=== PATIENT | male | born 1955 | race Hispanic/Latino ===

== ENCOUNTER 2017-11-20 05:28 | Inpatient (IN) | payer OTHER ==
[2017-11-20] VITALS (18 sets, daily range): BP systolic 118–152; BP diastolic 66–99
[~2017-11-20] VITALS: Ht 177.8 cm; Wt 101.3 kg
[~2017-11-20 05:28] MED LIST: ACET1TAB12 PO
[2017-11-20] MEDS ORDERED: ASPIRIN 325 MG TABLET ONE (05:33)
[2017-11-20] MEDS ORDERED: NITROGLYCERIN 0.4 MG SL TAB SL ONE ×2 (05:41→06:18)
[2017-11-20 05:47] LABS: BASOPHILS % (AUTO) 1.1 % (0.0-5.0); EOSINOPHILS % (AUTO) 3.7 % (0.0-8.0); HEMATOCRIT 44.9 % (42-54); LYMPHOCYTES % (AUTO) 27.2 % (21.0-51.0); MEAN CORPUSCULAR HEMOGLOBIN 30.5 pg (27.0-33.0); MEAN CORPUSCULAR HGB CONC 36.2 g/dL (32.0-36.0); MEAN CORPUSCULAR VOLUME 84.2 fL (79-99); MONOCYTES % (AUTO) 7.4 % (3.0-13.0); NEUTROPHILS % (AUTO) 60.6 % (40.0-77.0); NUCLEATED RED BLOOD CELLS 0.1 % (0.0-0.19); PLATELET COUNT (AUTO) 221 K/uL (130-400); RED BLOOD CELL COUNT(AUTO) 5.33 MIL/uL (4.50-6.20); WHITE BLOOD COUNT (AUTO) 8.9 K/uL (4.8-10.8)
[2017-11-20] MEDS ORDERED: METOPROLOL TARTRATE 1 MG/ML 5ML VIAL IV ONE ×2 (05:47→06:17)
[2017-11-20] MEDS ORDERED: CLOPIDOGREL BISULFATE 300 MG TAB ONE ×2 (05:47→06:13)
[2017-11-20 05:53] LABS: INR 0.93 (0.85-1.15); PROTHROMBIN TIME 9.8 SEC (9.6-11.6)
[2017-11-20 05:54] LABS: POTASSIUM 3.6 mmol/L (3.5-5.1)
[2017-11-20 06:05] LABS: ALBUMIN 3.5 g/dL (3.5-5.0); BILIRUBIN,TOTAL 0.5 mg/dL (0.2-1.0); TOTAL PROTEIN, SERUM 6.7 g/dL (6.0-8.3)
[2017-11-20 06:07] LABS: CREATINE KINASE MB 1.2 ng/mL (0.5-3.6)
[2017-11-20] MEDS ORDERED: BIVALIRUDIN 250 MG/VIAL IV ONE (06:13)
[2017-11-20] MEDS ORDERED: ISOVUE-370 50ML VIAL IV ONE (06:13)
[2017-11-20] MEDS ORDERED: NITROGLYCERIN 5 MG/ML 10 ML VIAL IV ONE (06:13)
[2017-11-20] MEDS ORDERED: IOPAMIDOL-370 100 ML VIAL IV ONE ×2 (06:13→07:13)
[2017-11-20] MEDS ORDERED: LIDOCAINE HCL-MPF 2% 5ML VIAL ONE (06:14)
[2017-11-20] MEDS ORDERED: EPTIFIBATIDE 75MG/100ML BOTTLE 100 ML IV ONE (07:05)
[2017-11-20] MEDS ORDERED: EPTIFIBATIDE 2 MG/ML 10 ML VIAL IVP ONE (07:05)
[2017-11-20] MEDS ORDERED: MIDAZOLAM HCL 1 MG/ML 2ML VIAL ONE (07:17)
[2017-11-20] MEDS ORDERED: MORPHINE SULFATE 4 MG/1ML SYG ONE ×2 (07:30→08:30)
[2017-11-20] MEDS ORDERED: ACETAMINOPHEN 325 MG TAB PO PRN (08:30)
[2017-11-20] MEDS ORDERED: EPTIFIBATIDE 75MG/100ML BOTTLE 100 ML IV SCH (08:30)
[2017-11-20 08:53] LABS: CHOLESTEROL 195 mg/dL (<200); HDL CHOLESTEROL 37 mg/dL (29-71); LDL DIRECT 155 mg/dL (0-99); TRIGLYCERIDES 165 mg/dL (30-200)
[2017-11-20] MEDS ORDERED: LISINOPRIL 5 MG TABLET PO SCH (09:00)
[2017-11-20] MEDS ORDERED: CARVEDILOL 6.25 MG TABLET PO SCH (09:00)
[2017-11-20] MEDS: CARVEDILOL 12.5 MG TABLET PO SCH ×2 (10:55→20:13)
[2017-11-20] MEDS: NITROGLYCERIN 50 MG/D5% WATER 1 BOT IV PRN (12:20)
[2017-11-20] MEDS ORDERED: INSULIN HUMULIN R 100 UNIT/ML 3ML SQ SCH (16:30)
[2017-11-20] MEDS ORDERED: LISINOPRIL 10 MG TABLET ONE (18:01)
[2017-11-20 18:49] LABS: CREATINE KINASE MB 44.4 ng/mL (0.5-3.6)
[2017-11-20 19:08] LABS: TROPONIN I 4.13 ng/mL (0.00-0.06)
[2017-11-20] MEDS: ATORVASTATIN CALCIUM 40 MG TABLET PO SCH (20:13)
[2017-11-20] MEDS: INSULIN HUMULIN R 100 UNIT/ML 3ML SQ SCH (20:19)
[2017-11-20] MEDS: ONDANSETRON HCL MDV 20ML 2 MG/ML VIAL IVP PRN (20:51)
[2017-11-20] MEDS ORDERED: INSULIN GLARGINE 100 UNITS/ML 10 ML VIAL SQ SCH (21:00)
[2017-11-21] VITALS (26 sets, daily range): BP systolic 112–163; BP diastolic 47–106
[2017-11-21 00:34] LABS: CREATINE KINASE MB 75.2 ng/mL (0.5-3.6)
[2017-11-21 00:40] LABS: TROPONIN I 9.79 ng/mL (0.00-0.06)
[2017-11-21] MEDS: NITROGLYCERIN 50 MG/D5% WATER 1 BOT IV PRN (04:51)
[2017-11-21] MEDS: ONDANSETRON HCL MDV 20ML 2 MG/ML VIAL IVP PRN (06:35)
[2017-11-21] MEDS: INSULIN HUMULIN R 100 UNIT/ML 3ML SQ SCH ×4 (06:39→20:28)
[2017-11-21 06:44] LABS: MEAN CORPUSCULAR HEMOGLOBIN 30.2 pg (27.0-33.0); MEAN CORPUSCULAR HGB CONC 35.5 g/dL (32.0-36.0); PLATELET COUNT (AUTO) 30 K/uL (130-400); RED BLOOD CELL COUNT(AUTO) 4.82 MIL/uL (4.50-6.20); RED CELL DISTRIBUTION WIDTH 14.1 % (11.0-15.5); WHITE BLOOD COUNT (AUTO) 12.8 K/uL (4.8-10.8)
[2017-11-21 07:00] LABS: HEMOGLOBIN A1C 10.6 % (4.0-6.0)
[2017-11-21 07:05] LABS: CREATINE KINASE MB 100.6 ng/mL (0.5-3.6)
[2017-11-21 07:07] LABS: TROPONIN I 23.68 ng/mL (0.00-0.06)
[2017-11-21 07:13] LABS: CREATININE 1.2 mg/dL (0.5-1.5); POTASSIUM 3.5 mmol/L (3.5-5.1)
[2017-11-21] MEDS: CLOPIDOGREL BISULFATE 75 MG TAB PO SCH (08:30)
[2017-11-21] MEDS: CARVEDILOL 12.5 MG TABLET PO SCH ×2 (08:31→20:22)
[2017-11-21] MEDS: ASPIRIN 81MG TAB.CHEW PO SCH (08:31)
[2017-11-21] MEDS: LISINOPRIL 10 MG TABLET PO SCH (08:31)
[2017-11-21] MEDS ORDERED: HYDROCHLOROTHIAZIDE 25 MG TABLET PO SCH (15:00)
[2017-11-21] MEDS ORDERED: CLONIDINE HCL 0.1 MG TABLET PO PRN (15:00)
[2017-11-21] MEDS ORDERED: FUROSEMIDE 10 MG/ML 2ML VIAL ONE (16:13)
[2017-11-21] MEDS ORDERED: FURO20TA6 PO (16:14)
[2017-11-21] MEDS ORDERED: CLOP75TA14 PO (16:14)
[2017-11-21] MEDS ORDERED: SPIRONOLACTONE 25 MG TAB ONE (16:14)
[2017-11-21] MEDS ORDERED: CARV12.580 PO (16:14)
[2017-11-21] MEDS ORDERED: SPIR25TA PO (16:14)
[2017-11-21] MEDS ORDERED: LISI10TA7 PO (16:14)
[2017-11-21] MEDS ORDERED: ASPI-1005 PO (16:14)
[2017-11-21] MEDS ORDERED: ATOR40TA69 PO (16:14)
[2017-11-21] MEDS ORDERED: FUROSEMIDE 10 MG/ML 2ML VIAL IV SCH (16:15)
[2017-11-21] MEDS ORDERED: SPIRONOLACTONE 25 MG TAB PO SCH (16:15)
[2017-11-21 16:22] LABS: HEMATOCRIT 40.7 % (42-54); MEAN CORPUSCULAR HEMOGLOBIN 29.9 pg (27.0-33.0); MEAN CORPUSCULAR HGB CONC 34.9 g/dL (32.0-36.0); MEAN CORPUSCULAR VOLUME 85.7 fL (79-99); PLATELET COUNT (AUTO) 37 K/uL (130-400); RED BLOOD CELL COUNT(AUTO) 4.75 MIL/uL (4.50-6.20); RED CELL DISTRIBUTION WIDTH 14.3 % (11.0-15.5); WHITE BLOOD COUNT (AUTO) 13.4 K/uL (4.8-10.8)
[2017-11-21] MEDS: ATORVASTATIN CALCIUM 40 MG TABLET PO SCH (20:22)
[2017-11-21] MEDS: INSULIN GLARGINE 100 UNITS/ML 10 ML VIAL SQ SCH (20:26)
[2017-11-22 04:00] VITALS: BP 123/84
[2017-11-22 04:19] LABS: BASOPHILS % (AUTO) 0.7 % (0.0-5.0); EOSINOPHILS % (AUTO) 1.4 % (0.0-8.0); HEMATOCRIT 42.2 % (42-54); LYMPHOCYTES % (AUTO) 20.1 % (21.0-51.0); MEAN CORPUSCULAR HEMOGLOBIN 30.1 pg (27.0-33.0); MEAN CORPUSCULAR HGB CONC 35.2 g/dL (32.0-36.0); MEAN CORPUSCULAR VOLUME 85.5 fL (79-99); MONOCYTES % (AUTO) 11.7 % (3.0-13.0); NEUTROPHILS % (AUTO) 66.1 % (40.0-77.0); NUCLEATED RED BLOOD CELLS 0.1 % (0.0-0.19); PLATELET COUNT (AUTO) 47 K/uL (130-400); RED BLOOD CELL COUNT(AUTO) 4.93 MIL/uL (4.50-6.20); RED CELL DISTRIBUTION WIDTH 14.1 % (11.0-15.5); WHITE BLOOD COUNT (AUTO) 13.5 K/uL (4.8-10.8)
[2017-11-22 04:33] LABS: CREATININE 1.1 mg/dL (0.5-1.5); MAGNESIUM 1.6 mg/dL (1.80-2.40); POTASSIUM 3.4 mmol/L (3.5-5.1)
[2017-11-22] MEDS: INSULIN HUMULIN R 100 UNIT/ML 3ML SQ SCH ×4 (07:30→21:17)
[2017-11-22 07:52] VITALS: BP 125/81
[2017-11-22] MEDS: LISINOPRIL 10 MG TABLET PO SCH (08:57)
[2017-11-22] MEDS: CLOPIDOGREL BISULFATE 75 MG TAB PO SCH (08:57)
[2017-11-22] MEDS: CARVEDILOL 12.5 MG TABLET PO SCH ×2 (08:58→21:21)
[2017-11-22] MEDS: ASPIRIN 81MG TAB.CHEW PO SCH (08:58)
[2017-11-22] MEDS ORDERED: SPIRONOLACTONE 25 MG TAB PO SCH (09:00)
[2017-11-22] MEDS ORDERED: FUROSEMIDE 20 MG TABLET PO SCH (09:00)
[2017-11-22 11:16] VITALS: BP 126/81
[2017-11-22] MEDS: MAGNESIUM 2GM PREMIX 50ML 50 ML IV SCH (11:28)
[2017-11-22 15:59] VITALS: BP 119/43
[2017-11-22 19:56] VITALS: BP 142/82
[2017-11-22] MEDS: INSULIN GLARGINE 100 UNITS/ML 10 ML VIAL SQ SCH (21:16)
[2017-11-22] MEDS: ATORVASTATIN CALCIUM 40 MG TABLET PO SCH (21:20)
[2017-11-22 23:42] VITALS: BP 130/67
[2017-11-23 03:47] LABS: HEMATOCRIT 39.7 % (42-54); MEAN CORPUSCULAR HEMOGLOBIN 30.8 pg (27.0-33.0); MEAN CORPUSCULAR HGB CONC 36.3 g/dL (32.0-36.0); MEAN CORPUSCULAR VOLUME 84.7 fL (79-99); PLATELET COUNT (AUTO) 63 K/uL (130-400); RED BLOOD CELL COUNT(AUTO) 4.69 MIL/uL (4.50-6.20); RED CELL DISTRIBUTION WIDTH 14.1 % (11.0-15.5); WHITE BLOOD COUNT (AUTO) 11.1 K/uL (4.8-10.8)
[2017-11-23 04:03] LABS: CREATININE 1.1 mg/dL (0.5-1.5); MAGNESIUM 1.8 mg/dL (1.80-2.40); POTASSIUM 3.3 mmol/L (3.5-5.1)
[2017-11-23 04:26] VITALS: BP 125/84
[2017-11-23 04:32] LABS: BAND NEUTROPHILS % (MANUAL) 2 % (0-2); BASOPHILS % (MANUAL) 1 % (0-2); EOSINOPHILS % (MANUAL) 2 % (1-6); LYMPHOCYTES % (MANUAL) 10 % (22-44); MAN.DIFF COMMENT-IMPRESSION MANUAL DIFFERENTIAL; MONOCYTES % (MANUAL) 4 % (2-9); REACTIVE LYMPHOCYTES 6 % (0-0); SEGMENTED NEUTROPHILS % 75 % (40-70)
[2017-11-23] MEDS: MAGNESIUM 2GM PREMIX 50ML 50 ML IV SCH (04:35)
[2017-11-23] MEDS ORDERED: POTASSIUM CHLORIDE 20MEQ/100ML 100 ML IV PRN (04:45)
[2017-11-23] MEDS ORDERED: POTASSIUM CHLORIDE 10% ELIXIR 20 MEQ/15 ML UDCUP PO PRN (04:45)
[2017-11-23] MEDS ORDERED: LIDOCAINE HCL-MPF 1% 2ML VIAL IVP PRN (04:45)
[2017-11-23] MEDS ORDERED: POTASSIUM CHLORIDE 10 MEQ/TAB.SA PO ONE ×4 (04:48→06:36)
[2017-11-23] MEDS: INSULIN HUMULIN R 100 UNIT/ML 3ML SQ SCH ×4 (06:38→21:31)
[2017-11-23 07:12] VITALS: BP 137/93
[2017-11-23] MEDS: SPIRONOLACTONE 25 MG TAB PO SCH (10:31)
[2017-11-23] MEDS: CARVEDILOL 12.5 MG TABLET PO SCH ×2 (10:31→21:34)
[2017-11-23] MEDS: ASPIRIN 81MG TAB.CHEW PO SCH (10:31)
[2017-11-23] MEDS: LISINOPRIL 10 MG TABLET PO SCH (10:31)
[2017-11-23] MEDS: CLOPIDOGREL BISULFATE 75 MG TAB PO SCH (10:31)
[2017-11-23] MEDS: POTASSIUM CHLORIDE 20 MEQ ERTAB PO PRN ×2 (10:32→13:19)
[2017-11-23 11:30] VITALS: BP 136/95
[2017-11-23 16:11] VITALS: BP 143/94
[2017-11-23 19:44] VITALS: BP 140/92
[2017-11-23] MEDS ORDERED: INSULIN GLARGINE 100 UNITS/ML 10 ML VIAL SQ SCH (21:00)
[2017-11-23] MEDS: ATORVASTATIN CALCIUM 40 MG TABLET PO SCH (21:34)
[2017-11-23 23:57] VITALS: BP 149/92
[2017-11-24 04:22] VITALS: BP 133/95
[2017-11-24 04:41] LABS: POTASSIUM 3.6 mmol/L (3.5-5.1)
[2017-11-24] MEDS ORDERED: POTASSIUM CHLORIDE 10 MEQ/TAB.SA PO ONE ×4 (04:54→06:19)
[2017-11-24] MEDS: INSULIN HUMULIN R 100 UNIT/ML 3ML SQ SCH ×3 (06:41→16:46)
[2017-11-24 07:49] VITALS: BP 142/95
[2017-11-24] MEDS: SPIRONOLACTONE 25 MG TAB PO SCH (09:45)
[2017-11-24] MEDS: CLOPIDOGREL BISULFATE 75 MG TAB PO SCH (09:45)
[2017-11-24] MEDS: LISINOPRIL 10 MG TABLET PO SCH (09:46)
[2017-11-24] MEDS: ASPIRIN 81MG TAB.CHEW PO SCH (09:46)
[2017-11-24] MEDS: CARVEDILOL 12.5 MG TABLET PO SCH (09:46)
[2017-11-24 11:42] VITALS: BP 136/85
[2017-11-24] MEDS ORDERED: SPIR25TA PO (15:47)
[2017-11-24 16:40] VITALS: BP 139/86
== END 2017-11-24 17:50 | disposition home or self-care (01) | DRG 246 ==
LOC: EDH 05:28 → EDHIP 05:29 → 2BH 08:04 → 2DH 11-22 14:29
PROVIDERS: ADMIT Internal Medicine Nephrology; ATTEND Internal Medicine Nephrology
PROC: 027236Z Dilation of Coronary Artery, Three Arteries with Three Drug-eluting Intraluminal Devices, Percutaneous Approach (ICD-10-PCS; principal; 2017-11-20)
PROC: 4A023N7 Measurement of Cardiac Sampling and Pressure, Left Heart, Percutaneous Approach (ICD-10-PCS; 2017-11-20)
PROC: B2111ZZ Fluoroscopy of Multiple Coronary Arteries using Low Osmolar Contrast (ICD-10-PCS; 2017-11-20)
PROC: B2151ZZ Fluoroscopy of Left Heart using Low Osmolar Contrast (ICD-10-PCS; 2017-11-20)
PROC: B41F1ZZ Fluoroscopy of Right Lower Extremity Arteries using Low Osmolar Contrast (ICD-10-PCS; 2017-11-20)
DX: I21.19 ST elevation (STEMI) myocardial infarction involving other coronary artery of inferior wall (principal); I50.21 Acute systolic (congestive) heart failure; I16.1 Hypertensive emergency; E11.65 Type 2 diabetes mellitus with hyperglycemia; I11.0 Hypertensive heart disease with heart failure; E66.9 Obesity, unspecified; E78.5 Hyperlipidemia, unspecified; E87.6 Hypokalemia; I25.10 Atherosclerotic heart disease of native coronary artery without angina pectoris; I25.5 Ischemic cardiomyopathy; I34.0 Nonrheumatic mitral (valve) insufficiency; Z90.49 Acquired absence of other specified parts of digestive tract
CPT/HCPCS: 36415; 71045; 80048; 80053; 80061; 82550; 82553; 82948; 83036; 83735; 83874; 83880; 84484; 85025; 85027; 85610; 85730; 93005; 93458; 99152; 99153; 99291; C1725; C1760; C1769; C1887; C1894; C9600; C9601; J0583; J1327; J1644; J1815; J1940; J2250; J2270; J3475; J3490; Q9967

== ENCOUNTER 2017-11-27 21:09 | Inpatient (IN) | payer OTHER ==
[~2017-11-27] VITALS: Ht 177.8 cm; Wt 106.4 kg
[~2017-11-27 21:09] MED LIST changes: -ACET1TAB12 PO; +ASPI-1005 PO; +ATOR40TA69 PO; +CARV12.580 PO; +CLOP75TA14 PO; +FURO20TA6 PO; +LISI10TA7 PO; +SPIR25TA PO
[2017-11-27 21:52] LABS: BASOPHILS % (AUTO) 1.1 % (0.0-5.0); EOSINOPHILS % (AUTO) 2.7 % (0.0-8.0); HEMATOCRIT 38.8 % (42-54); LYMPHOCYTES % (AUTO) 19.7 % (21.0-51.0); MEAN CORPUSCULAR HEMOGLOBIN 31.1 pg (27.0-33.0); MEAN CORPUSCULAR HGB CONC 36.5 g/dL (32.0-36.0); MEAN CORPUSCULAR VOLUME 85.2 fL (79-99); MONOCYTES % (AUTO) 9.1 % (3.0-13.0); NEUTROPHILS % (AUTO) 67.4 % (40.0-77.0); PLATELET COUNT (AUTO) 260 K/uL (130-400); RED BLOOD CELL COUNT(AUTO) 4.56 MIL/uL (4.50-6.20); WHITE BLOOD COUNT (AUTO) 10.3 K/uL (4.8-10.8)
[2017-11-27 22:03] LABS: CREATININE 1.4 mg/dL (0.5-1.5)
[2017-11-27 22:07] LABS: ALBUMIN 3.1 g/dL (3.5-5.0); BILIRUBIN,TOTAL 0.4 mg/dL (0.2-1.0)
[2017-11-27] MEDS ORDERED: IOPAMIDOL-370 75 ML VIAL IV ONE (22:15)
[2017-11-28] MEDS ORDERED: ZOSYN 3.375GM+NS 50ML 50 ML IV ONE (00:02)
[2017-11-28] MEDS ORDERED: SODIUM CHLORIDE 0.9% 1000ML 1,000 ML IV ONE (00:10)
[2017-11-28 00:15] LABS: INR 0.96 (0.85-1.15); PARTIAL THROMBOPLASTIN TIME 26.8 SEC (26.3-35.5); PROTHROMBIN TIME 10.1 SEC (9.6-11.6)
[2017-11-28 00:37] LABS: CREATINE KINASE MB 0.7 ng/mL (0.5-3.6)
[2017-11-28 00:43] LABS: TROPONIN I 1.29 ng/mL (0.00-0.06)
[2017-11-28 02:00] VITALS: BP 140/87
[2017-11-28 02:31] LABS: APPEARANCE,URINE Clear (CLEAR); BILIRUBIN,URINE Negative (NEGATIVE); COLOR,URINE Yellow (YELLOW); GLUCOSE, URINE (UA) >=1000 mg/dL (NEGATIVE); KETONES,URINE Negative (NEGATIVE); LEUKOCYTE ESTERASE ,URINE Negative (NEGATIVE); NITRATE,URINE Negative (NEGATIVE); OCCULT BLOOD,URINE Negative (NEGATIVE); PROTEIN,URINE POS 1+ (NEGATIVE)
[2017-11-28 02:37] LABS: BACTERIA,URINE None Seen /HPF (None Seen); RBC,URINE 0-1 /HPF (0-1); SQUAMOUS EPITHELIAL CELL,UR Rare /HPF (0-2); WBC,URINE 0-1 /HPF (0-1); YEAST,URINE BUDDING None Seen /HPF (None Seen)
[2017-11-28] MEDS ORDERED: TICA90TA PO (02:49)
[2017-11-28] MEDS ORDERED: CARV6.2579 PO (02:49)
[2017-11-28 04:49] LABS: HEMATOCRIT 35.8 % (42-54); MEAN CORPUSCULAR HEMOGLOBIN 30.6 pg (27.0-33.0); MEAN CORPUSCULAR VOLUME 85.1 fL (79-99); PLATELET COUNT (AUTO) 234 K/uL (130-400); RED CELL DISTRIBUTION WIDTH 14.3 % (11.0-15.5); WHITE BLOOD COUNT (AUTO) 9.3 K/uL (4.8-10.8)
[2017-11-28 05:00] LABS: CREATININE 1.3 mg/dL (0.5-1.5); POTASSIUM 4.7 mmol/L (3.5-5.1)
[2017-11-28] MEDS ORDERED: ONDANSETRON HCL MDV 20ML 2 MG/ML VIAL IVP PRN (05:15)
[2017-11-28] MEDS: LEVOFLOXACIN 500 MG/D5W 100 ML 100 ML IV SCH (06:40)
[2017-11-28] MEDS: METRONIDAZOLE 500MG/100ML BAG 100 ML IVPB SCH ×3 (06:40→20:16)
[2017-11-28 08:00] VITALS: BP 144/90
[2017-11-28] MEDS: FAMOTIDINE/PF 20 MG/2 ML VIAL IV SCH ×2 (08:08→20:43)
[2017-11-28 11:28] VITALS: BP 152/80
[2017-11-28 12:13] LABS: CREATINE KINASE MB 0.6 ng/mL (0.5-3.6)
[2017-11-28] MEDS ORDERED: CLOPIDOGREL BISULFATE 75 MG TAB ONE (12:31)
[2017-11-28] MEDS: ASPIRIN 81MG TAB.CHEW PO SCH (12:37)
[2017-11-28] MEDS: CLOPIDOGREL BISULFATE 75 MG TAB PO SCH (12:38)
[2017-11-28 12:43] LABS: TROPONIN I 0.84 ng/mL (0.00-0.06)
[2017-11-28] MEDS: SODIUM CHLORIDE 0.9% 1000ML 1,000 ML IV SCH ×2 (12:46→15:15)
[2017-11-28] MEDS: MORPHINE SULFATE 4 MG/1ML SYG IV PRN ×2 (14:59→20:46)
[2017-11-28 16:00] VITALS: BP 132/84
[2017-11-28 20:12] VITALS: BP 145/87
[2017-11-28] MEDS ORDERED: METOPROLOL TARTRATE 1 MG/ML 5ML VIAL IV ONE (20:26)
[2017-11-28] MEDS: ATORVASTATIN CALCIUM 40 MG TABLET PO SCH (20:43)
[2017-11-28] MEDS: CARVEDILOL 6.25 MG TABLET PO SCH (20:45)
[2017-11-29 00:10] VITALS: BP 135/85
[2017-11-29] MEDS: METRONIDAZOLE 500MG/100ML BAG 100 ML IVPB SCH ×5 (01:43→23:59)
[2017-11-29 03:50] VITALS: BP 134/88
[2017-11-29 05:02] LABS: EOSINOPHILS % (AUTO) 4.5 % (0.0-8.0); HEMATOCRIT 35.4 % (42-54); LYMPHOCYTES % (AUTO) 29.6 % (21.0-51.0); MEAN CORPUSCULAR HEMOGLOBIN 30.9 pg (27.0-33.0); MEAN CORPUSCULAR HGB CONC 36.4 g/dL (32.0-36.0); MEAN CORPUSCULAR VOLUME 84.8 fL (79-99); NEUTROPHILS % (AUTO) 54.9 % (40.0-77.0); PLATELET COUNT (AUTO) 278 K/uL (130-400); RED BLOOD CELL COUNT(AUTO) 4.17 MIL/uL (4.50-6.20); RED CELL DISTRIBUTION WIDTH 14.1 % (11.0-15.5); WHITE BLOOD COUNT (AUTO) 7.3 K/uL (4.8-10.8)
[2017-11-29 05:20] LABS: B-TYPE NATRIURETIC PEPTIDE 137 pg/mL (0-100)
[2017-11-29 05:33] LABS: CREATINE KINASE MB 0.5 ng/mL (0.5-3.6); CREATININE 1.1 mg/dL (0.5-1.5); POTASSIUM 4.3 mmol/L (3.5-5.1)
[2017-11-29 05:35] LABS: TROPONIN I 0.81 ng/mL (0.00-0.06)
[2017-11-29 07:46] VITALS: BP 146/92
[2017-11-29] MEDS: LEVOFLOXACIN 500 MG/D5W 100 ML 100 ML IV SCH (07:48)
[2017-11-29] MEDS: LISINOPRIL 10 MG TABLET PO SCH (09:09)
[2017-11-29] MEDS: FAMOTIDINE/PF 20 MG/2 ML VIAL IV SCH ×2 (09:09→20:44)
[2017-11-29] MEDS: CARVEDILOL 6.25 MG TABLET PO SCH ×2 (09:09→20:44)
[2017-11-29] MEDS: CLOPIDOGREL BISULFATE 75 MG TAB PO SCH (09:09)
[2017-11-29] MEDS: ASPIRIN 81MG TAB.CHEW PO SCH (09:09)
[2017-11-29] MEDS: MORPHINE SULFATE 4 MG/1ML SYG IV PRN (09:10)
[2017-11-29 11:05] VITALS: BP 130/81
[2017-11-29] MEDS: SODIUM CHLORIDE 0.9% 1000ML 1,000 ML IV SCH ×3 (11:15→21:15)
[2017-11-29 15:59] VITALS: BP 137/90
[2017-11-29 19:30] VITALS: BP 141/86
[2017-11-29] MEDS: ATORVASTATIN CALCIUM 40 MG TABLET PO SCH (20:44)
[2017-11-30] VITALS: BP 138/83
[2017-11-30 04:00] VITALS: BP 124/79
[2017-11-30] MEDS: METRONIDAZOLE 500MG/100ML BAG 100 ML IVPB SCH ×2 (05:50→12:00)
[2017-11-30] MEDS: LEVOFLOXACIN 500 MG/D5W 100 ML 100 ML IV SCH (06:52)
[2017-11-30] MEDS: SODIUM CHLORIDE 0.9% 1000ML 1,000 ML IV SCH (07:15)
[2017-11-30 08:00] VITALS: BP 131/83
[2017-11-30] MEDS: CLOPIDOGREL BISULFATE 75 MG TAB PO SCH (09:16)
[2017-11-30] MEDS: ASPIRIN 81MG TAB.CHEW PO SCH (09:17)
[2017-11-30] MEDS: FAMOTIDINE/PF 20 MG/2 ML VIAL IV SCH (09:17)
[2017-11-30] MEDS: LISINOPRIL 10 MG TABLET PO SCH (09:17)
[2017-11-30] MEDS: CARVEDILOL 6.25 MG TABLET PO SCH (09:17)
[2017-11-30 11:08] VITALS: BP 132/92
[2017-11-30] MEDS ORDERED: LEVO500T2 PO (13:20)
[2017-11-30] MEDS ORDERED: METR500T PO (13:20)
== END 2017-11-30 14:36 | disposition home or self-care (01) | DRG 392 ==
LOC: EDH 21:09 → EDHIP 21:10 → OBSVTOIN 21:10 → 3DH 11-28 02:04
PROVIDERS: ADMIT Family Medicine; ATTEND Family Medicine
DX: K57.32 Diverticulitis of large intestine without perforation or abscess without bleeding (principal); D72.829 Elevated white blood cell count, unspecified; E11.9 Type 2 diabetes mellitus without complications; E78.5 Hyperlipidemia, unspecified; I10 Essential (primary) hypertension; I25.10 Atherosclerotic heart disease of native coronary artery without angina pectoris; I25.5 Ischemic cardiomyopathy; I25.2 Old myocardial infarction; Z79.82 Long term (current) use of aspirin; Z79.899 Other long term (current) drug therapy; Z91.14 Patient's other noncompliance with medication regimen; Z95.5 Presence of coronary angioplasty implant and graft
CPT/HCPCS: 36415; 71045; 74177; 80048; 80053; 81001; 82270; 82550; 82553; 83605; 83690; 83874; 83880; 84484; 85025; 85027; 85610; 85730; 87040; 87088; 87507; 93005; J1956; J2270; J2543; J3490; J7030; Q9967

== ENCOUNTER 2017-12-02 15:43 | Emergency (ER) | payer OTHER ==
[~2017-12-02 15:43] MED LIST changes: +CARV6.2579 PO; +LEVO500T2 PO; +METR500T PO
[2017-12-02] MEDS ORDERED: SODIUM CHLORIDE 0.9% 1000ML 1,000 ML IV ONE (16:47)
[2017-12-02] MEDS ORDERED: ONDANSETRON HCL MDV 20ML 2 MG/ML VIAL ONE (16:47)
[2017-12-02] MEDS ORDERED: MORPHINE SULFATE 4 MG/1ML SYG ONE (16:48)
[2017-12-02 16:51] LABS: BASOPHILS % (AUTO) 1.2 % (0.0-5.0); EOSINOPHILS % (AUTO) 4.4 % (0.0-8.0); HEMATOCRIT 36.7 % (42-54); LYMPHOCYTES % (AUTO) 28.8 % (21.0-51.0); MEAN CORPUSCULAR HEMOGLOBIN 30.4 pg (27.0-33.0); MEAN CORPUSCULAR HGB CONC 35.8 g/dL (32.0-36.0); NEUTROPHILS % (AUTO) 55.6 % (40.0-77.0); PLATELET COUNT (AUTO) 372 K/uL (130-400); RED BLOOD CELL COUNT(AUTO) 4.31 MIL/uL (4.50-6.20); WHITE BLOOD COUNT (AUTO) 6.9 K/uL (4.8-10.8)
[2017-12-02 17:03] LABS: CREATININE 1.1 mg/dL (0.5-1.5)
[2017-12-02 17:08] LABS: ALBUMIN 3.2 g/dL (3.5-5.0); BILIRUBIN,TOTAL 0.3 mg/dL (0.2-1.0); TOTAL PROTEIN, SERUM 6.7 g/dL (6.0-8.3)
[2017-12-02 17:29] LABS: INR 0.99 (0.85-1.15); PARTIAL THROMBOPLASTIN TIME 25.9 SEC (26.3-35.5); PROTHROMBIN TIME 10.4 SEC (9.6-11.6)
[2017-12-02] MEDS ORDERED: MAGNESIUM CITRATE 296 ML SOLUTION ONE (20:54)
== END 2017-12-02 21:33 | disposition home or self-care (01) ==
LOC: EDH 15:43
DX: K62.5 Hemorrhage of anus and rectum (principal); K59.00 Constipation, unspecified; I10 Essential (primary) hypertension; E11.9 Type 2 diabetes mellitus without complications; I25.10 Atherosclerotic heart disease of native coronary artery without angina pectoris
CPT/HCPCS: 36415; 74176; 80053; 82270; 85025; 85610; 85730; 96374; 96375; 99285; J2270; J7030

== ENCOUNTER 2020-09-20 20:22 | Emergency (ER) | payer OTHER ==
[~2020-09-20 20:22] MED LIST changes: +LISI10TA24 PO; -LISI10TA7 PO
[2020-09-20] MEDS ORDERED: CYCLOBENZAPRINE HCL 10 MG TABLET ONE (20:55)
[2020-09-20] MEDS ORDERED: ONDANSETRON HCL 4 MG/2 ML VIAL ONE (20:55)
[2020-09-20] MEDS ORDERED: HYDROCODONE/ACETAMINOPHEN 10/325 MG TAB ONE (20:56)
[2020-09-20 21:47] LABS: BASOPHILS % (AUTO) 0.9 % (0.0-5.0); EOSINOPHILS % (AUTO) 2.1 % (0.0-8.0); HEMATOCRIT 40.1 % (42-54); LYMPHOCYTES % (AUTO) 20.3 % (21.0-51.0); MEAN CORPUSCULAR HEMOGLOBIN 30.3 pg (27.0-33.0); MEAN CORPUSCULAR HGB CONC 36.2 g/dL (32.0-36.0); MEAN CORPUSCULAR VOLUME 83.9 fL (79-99); MONOCYTES % (AUTO) 8.4 % (3.0-13.0); NEUTROPHILS % (AUTO) 67.8 % (40.0-77.0); PLATELET COUNT (AUTO) 193 K/uL (130-400); RED BLOOD CELL COUNT(AUTO) 4.78 MIL/uL (4.50-6.20); RED CELL DISTRIBUTION WIDTH 13.4 % (11.0-15.5); WHITE BLOOD COUNT (AUTO) 8.7 K/uL (4.8-10.8)
[2020-09-20 21:58] LABS: CREATININE 1.1 mg/dL (0.5-1.5); POTASSIUM 3.4 mmol/L (3.5-5.1)
[2020-09-20 22:03] LABS: ALBUMIN 3.3 g/dL (3.5-5.0); BILIRUBIN,TOTAL 0.5 mg/dL (0.2-1.0); TOTAL PROTEIN, SERUM 6.7 g/dL (6.0-8.3)
== END 2020-09-20 22:34 | disposition home or self-care (01) ==
LOC: EDH 20:22
DX: S39.012A Strain of muscle, fascia and tendon of lower back, initial encounter (principal); S16.1XXA Strain of muscle, fascia and tendon at neck level, initial encounter; S29.012A Strain of muscle and tendon of back wall of thorax, initial encounter; S70.02XA Contusion of left hip, initial encounter; S40.012A Contusion of left shoulder, initial encounter; I10 Essential (primary) hypertension; I25.10 Atherosclerotic heart disease of native coronary artery without angina pectoris; E11.65 Type 2 diabetes mellitus with hyperglycemia; V49.3XXA Car occupant (driver) (passenger) injured in unspecified nontraffic accident, initial encounter; Y93.89 Activity, other specified; Y92.89 Other specified places as the place of occurrence of the external cause; Y99.8 Other external cause status
CPT/HCPCS: 36415; 70450; 72040; 72072; 72100; 73030; 73502; 80053; 85025; 96374; 99285; J2405

== ENCOUNTER → 2023-05-23 | Outpatient (CLI) | payer OTHER ==
[~2023-05-23] MED LIST changes: -ATOR40TA69 PO; +CARV12.511 PO; -CARV12.580 PO; -CARV6.2579 PO; -CLOP75TA14 PO; -FURO20TA6 PO; +FURO40TA5 PO; +GABA-529 PO; -LEVO500T2 PO; -LISI10TA24 PO; -METR500T PO; +OMEP40CA21 PO; +PIOG15TA66 PO; +ROSU20TA73 PO; -SPIR25TA PO; +SUCR1ORA15 PO; +WHEA1POW2 PO
[2023-05-23 12:07] LABS: CREATININE 2.4 mg/dL (0.5-1.5)
== END | disposition home or self-care (01) ==
LOC: LAB 11:02
PROVIDERS: ATTEND Nurse Practitioner Acute Care
DX: I10 Essential (primary) hypertension (principal); E78.5 Hyperlipidemia, unspecified
CPT/HCPCS: 36415; 80048

== ENCOUNTER → 2023-06-09 | Outpatient (CLI) | payer OTHER ==
[2023-06-09 12:04] LABS: CREATININE 1.2 mg/dL (0.5-1.5); POTASSIUM 4.3 mmol/L (3.5-5.1)
== END | disposition home or self-care (01) ==
LOC: LAB 08:26
PROVIDERS: ATTEND Internal Medicine Cardiovascular Disease
DX: I10 Essential (primary) hypertension (principal)
CPT/HCPCS: 36415; 80048

== ENCOUNTER → 2023-07-24 | Outpatient (CLI) | payer OTHER ==
[2023-07-24 12:39] LABS: CREATININE 1.4 mg/dL (0.5-1.5); POTASSIUM 4.6 mmol/L (3.5-5.1)
== END | disposition home or self-care (01) ==
LOC: LAB 08:19
PROVIDERS: ATTEND Internal Medicine Cardiovascular Disease
DX: I50.42 Chronic combined systolic (congestive) and diastolic (congestive) heart failure (principal)
CPT/HCPCS: 36415; 80048; 83880